=== PATIENT | male | born 1995 | race American Indian/Alaskan Native ===

== ENCOUNTER 2023-02-02 12:40 | Emergency (ER) | payer SELFPAY ==
[~2023-02-02] VITALS: Ht 190.5 cm; Wt 77.3 kg
[2023-02-02 12:50] VITALS: BP 138/93; PULSE 75; TEMP 98.7
[2023-02-02 13:46] LABS: STREP SCREEN NEGATIVE
[2023-02-02] MEDS ORDERED: CEPHALEXIN500 M1 PO (13:49)
== END 2023-02-02 13:59 | disposition home or self-care (01) ==
LOC: COL.ER 12:40
PROVIDERS: Physician Assistant
DX: J02.9 Acute pharyngitis, unspecified (principal); F17.210 Nicotine dependence, cigarettes, uncomplicated; Z28.310 Unvaccinated for COVID-19